=== PATIENT | male | born 1995 | race Caucasian/White ===

== ENCOUNTER 2017-10-15 20:16 | Emergency (ER) | payer BC ==
[~2017-10-15] VITALS: Ht 177.8 cm; Wt 68.0 kg
[2017-10-15 20:37] VITALS: BP_SYST 107
[2017-10-15] MEDS ORDERED: IBUPROFEN 800 MG TABLET PO ONE (23:00)
[2017-10-15 23:27] VITALS: BP_SYST 107
== END 2017-10-15 23:27 | disposition home or self-care (01) ==
LOC: SED 20:16
DX: S52.201A Unspecified fracture of shaft of right ulna, initial encounter for closed fracture (principal); W50.0XXA Accidental hit or strike by another person, initial encounter; Y93.67 Activity, basketball; Y92.320 Baseball field as the place of occurrence of the external cause; Y99.8 Other external cause status
CPT/HCPCS: 73090; 99284